=== PATIENT | female | born 1965 | race African-American/Black ===

== ENCOUNTER → 2016-08-14 | Outpatient (CLI) | payer BC ==
--- NOTE | 2016-08-14 12:45 | MAMMOGRAPHY REPORT ---
BILATERAL DIGITAL DIAGNOSTIC MAMMOGRAM TOMOSYNTHESIS WITH CAD: 08/14/2016 CLINICAL HISTORY: Annual screening mammogram and follow-up of probably benign grouped microcalcifica tions in the upper inner quadrant of the left breast. TECHNIQUE: Bilateral CC and MLO 2-D digital and tomosynthesis images were obtained. Spot magnificat ion left CC and ML views were also obtained. Current study was also evaluated with a Computer Aided Detection (CAD) system. COMPARISON: Comparison is made to exams dated: 03/18/2016 mammogram, 02/08/2016 mammogram, 08/03/2015 ultrasound, 08/03/2015 mammogram, and 07/23/2015 mammogram - [facility]. BREAST COMPOSITION: There are scattered areas of fibroglandular density in both breasts. FINDINGS: The nodular asymmetry in the subareolar right breast is less conspicuous comparing to the 07/23/2015 mammogram. There are clustered microcalcifications in the anterior subareolar right chadd st that appears similar in number and distribution comparing to the 2016 exam. There is a small clu ster of microcalcifications in the upper inner anterior left breast for which spot magnification vie ws were obtained. With spot magnification views, this small 4 mm cluster of punctate and smudgy kevin rocalcifications is stable comparing back to 08/03/2015, most likely benign. However, another 12 mo nth follow-up exam is recommended to ensure at least 2 years of stability. Spot magnification views could also be obtained in the anterior right breast again at that time to ensure at least 2 years o f stability of the layering microcalcifications, given that they were not seen on the prior outside mammograms. No new suspicious mass, focal area of architectural distortion or developing asymmetrie s seen bilaterally. No new suspicious microcalcifications. IMPRESSION: ACR-BI-RADS CATEGORY 3: PROBABLY BENIGN Stable bilateral mammograms, including a small 4 mm grouping of benign-appearing microcalcifications in the upper inner anterior left breast. Another follow-up bilateral diagnostic mammogram includin g bilateral spot magnification views is recommended to ensure at least 2 years of stability of bilat eral microcalcifications, although nearly all of the right-sided microcalcifications demonstrated la yering on previous spot magnification views to confirm benign milk of calcium. These results and recommendations were discussed with the patient at the time of the exam. She tent atively scheduled a follow-up appointment prior to leaving our department. Approximately 10% of breast cancers are not detected with mammography. A negative mammographic repor t should not delay biopsy if a clinically suggestive mass is present. Halley Stanton M.D. ay/:08/14/2016 11:16:47 Impact Hammer Operator: Jane BONDS)(Tete), [facility] letter sent: Follow Up Recommended 3 BI-RADS Code: ACR-BI-RADS Category 3: Probably Benign
== END | disposition home or self-care (01) ==
LOC: C.MAMM 10:36
PROVIDERS: ATTEND Nurse Practitioner Family
DX: R92.0 Mammographic microcalcification found on diagnostic imaging of breast (principal)

== ENCOUNTER → 2017-08-20 | Outpatient (CLI) | payer OTHER ==
--- NOTE | 2017-08-21 07:47 | MAMMOGRAPHY REPORT ---
BILATERAL DIGITAL DIAGNOSTIC MAMMOGRAM TOMOSYNTHESIS WITH CAD: 08/20/2017 CLINICAL HISTORY: 51-year-old woman presents at time of annual screening mammogram and also close fol low-up of a probably benign grouping of microcalcifications in the upper inner anterior left breast. TECHNIQUE: Bilateral breast tomosynthesis in addition to standard 2D mammography was performed. Spot magnification left CC and ML views were also obtained. Current study was also evaluated with a Comp uter Aided Detection (CAD) system. COMPARISON: Comparison is made to exams dated: 08/14/2016 mammogram - [facility], 1 05/18/2015 mammogram, 02/08/2016 mammogram, 08/03/2015 ultrasound, 08/03/2015 mammogram, and 07/23/2015 ma mmogram - [facility]. BREAST COMPOSITION: There are scattered areas of fibroglandular density in both breasts. FINDINGS: The right breast parenchymal pattern is similar to prior mammograms, with a less conspicuou s focal asymmetry in the 6:00 anterior right breast, but this area is again identified on the tomosyn thesis images. There is an associated grouping of microcalcifications, which previously demonstrated layering and tea cupping on the spot magnification ML view, confirming microcalcifications within mi crocysts/milk of calcium. No suspicious mass, architectural distortion or cluster of microcalcificat ions is seen in the right breast. The left breast parenchymal pattern is similar to prior mammograms. The spot magnification views of the left anterior breast redemonstrate a small grouping of punctate and amorphous microcalcifications in the upper inner anterior left breast that appears similar dating back to at least 08/03/2015. Thi s grouping of calcifications most likely also represent fibrocystic change but another 12 month follo w-up evaluation is recommended to ensure longer stability. No other new suspicious masses, calcifica tions, areas of architectural distortion or asymmetries are seen in the left breast. IMPRESSION: ACR-BI-RADS CATEGORY 3: PROBABLY BENIGN Stable bilateral mammograms, including a small grouping of punctate and amorphous microcalcifications in the upper inner anterior left breast. Another 12 month follow-up diagnostic mammogram including left spot magnification views is recommended to ensure longer stability of the grouping of calcificat ions. Annual bilateral mammography will also be due at that time. These results and recommendations were discussed with the patient at the time of the exam. Approximately 10% of breast cancers are not detected with mammography. A negative mammographic report should not delay biopsy if a clinically suggestive mass is present. Halley Stanton M.D. ay/:08/20/2017 11:12:14 [employer] Telephone Clerk: Anat Gar, [facility] letter sent: Follow Up Recommended 3 BI-RADS Code: ACR-BI-RADS Category 3: Probably Benign
== END | disposition home or self-care (01) ==
LOC: C.MAMM 10:39
PROVIDERS: ATTEND Nurse Practitioner Family
DX: R92.0 Mammographic microcalcification found on diagnostic imaging of breast (principal)